=== PATIENT | female | born 1985 | race Caucasian/White ===

== ENCOUNTER 2018-11-10 09:19 | Emergency (ER) | payer MEDICAID ==
[~2018-11-10] VITALS: Ht 170.2 cm; Wt 104.3 kg
[~2018-11-10 09:19] MED LIST: ESCI10TA PO; NITR-39 PO; PANT40T PO; PRO625LQ PO; QUET50TA PO
[2018-11-10 10:15] VITALS: BP 126/85
[2018-11-10] MEDS: KETOROLAC TROMETH 60MG/2ML VIAL IM ONE (11:15)
[2018-11-10] MEDS: PROMETHAZINE HCL 25 MG/ML 1ML IM ONE (11:23)
[2018-11-10] MEDS: diphenhdrAMINE HCL 25 MG CAP PO ONE (11:24)
== END 2018-11-10 12:03 | disposition home or self-care (01) ==
LOC: ER 09:19
DX: R51 Headache (principal); F17.210 Nicotine dependence, cigarettes, uncomplicated; Z98.51 Tubal ligation status
CPT/HCPCS: 70450; 96372; 99284; J1885

== ENCOUNTER 2022-01-04 14:12 | Emergency (ER) | payer MEDICAID ==
[~2022-01-04] VITALS: Ht 170.2 cm; Wt 136.1 kg
[2022-01-04 14:16] VITALS: BP 145/97
[2022-01-04] MEDS ORDERED: AMOX-277 PO (15:34)
[2022-01-04] MEDS ORDERED: PROM1SOL4 PO (15:34)
[2022-01-04] MEDS ORDERED: PRED20TA2 PO (15:34)
== END 2022-01-04 15:40 | disposition home or self-care (01) ==
LOC: ER 14:12
DX: J20.9 Acute bronchitis, unspecified (principal); H66.93 Otitis media, unspecified, bilateral; F17.210 Nicotine dependence, cigarettes, uncomplicated
CPT/HCPCS: 71046

== ENCOUNTER 2022-01-14 20:28 | Emergency (ER) | payer MEDICAID ==
[~2022-01-14] VITALS: Ht 170.2 cm; Wt 136.1 kg
[~2022-01-14 20:28] MED LIST changes: +AMOX-277 PO; +PRED20TA2 PO; +PROM1SOL4 PO
[2022-01-15 00:43] VITALS: BP 149/83
[2022-01-15] MEDS ORDERED: PRED20TA2 PO (00:51)
== END 2022-01-15 01:14 | disposition home or self-care (01) ==
LOC: ER 20:28
DX: J06.9 Acute upper respiratory infection, unspecified (principal); F17.210 Nicotine dependence, cigarettes, uncomplicated; Z98.51 Tubal ligation status